=== PATIENT | female | born 1965 | race Caucasian/White ===

== ENCOUNTER → 2016-12-09 | Outpatient (CLI) | payer OTHER | LOC: MAMO 11:23 | DX: Z12.31 Encounter for screening mammogram for malignant neoplasm of breast (principal); Z98.890 Other specified postprocedural states | CPT/HCPCS: G0202 ==

== ENCOUNTER 2021-08-08 09:06 | Emergency (ER) | payer OTHER ==
[~2021-08-08 09:06] MED LIST: KEFLEX CAP 500500 MG PO; PERCOCET 5/325 T1 EA PO
== END 2021-08-08 12:48 | disposition home or self-care (01) ==
LOC: ER1 09:06
DX: S70.02XA Contusion of left hip, initial encounter (principal); W19.XXXA Unspecified fall, initial encounter; Y93.9 Activity, unspecified; Y92.009 Unspecified place in unspecified non-institutional (private) residence as the place of occurrence of the external cause
CPT/HCPCS: 73502; 73700; 99283